=== PATIENT | male | born 1975 | race Caucasian/White ===

== ENCOUNTER → 2017-02-10 | Outpatient (CLI) | payer BC ==
--- NOTE | 2017-02-14 08:47 | ECHOF ---
DATE OF PROCEDURE 02/13/2017 INDICATIONS This is a two-dimensional echo with spectral Doppler, color-flow, and M-mode. It was obtained in a patient with shortness of breath. DESCRIPTION OF PROCEDURE Left atrial dimension is normal. Left ventricular end-diastolic dimension is normal. Left ventricular wall thickness is normal. LV systolic function is normal with ejection fraction of 56%. Right atrium is normal. Right ventricle is normal. Aortic root dimension is normal. Mitral, aortic, tricuspid, and pulmonary valves are morphologically normal with mild pulmonary insufficiency, trace of mitral regurgitation, and mild tricuspid regurgitation with normal estimated pulmonary artery systolic pressure of 31. There is no pericardial effusion. IMPRESSION 1. Normal LV systolic function with ejection fraction of 56%. 2. Trace of mitral regurgitation. 3. Mild tricuspid regurgitation with normal estimated pulmonary artery systolic pressure of 31. 4. Mild pulmonary insufficiency. MTDD
== END ==
LOC: IMA 13:05
PROVIDERS: ATTEND Internal Medicine Cardiovascular Disease
DX: I07.1 Rheumatic tricuspid insufficiency (principal); I37.1 Nonrheumatic pulmonary valve insufficiency; R06.02 Shortness of breath
CPT/HCPCS: 93306